=== PATIENT | male | born 1950 | race Caucasian/White ===

== ENCOUNTER 2019-03-20 12:51 | Inpatient (IN) | payer MEDICARE ==
[~2019-03-20] VITALS: Ht 170.2 cm; Wt 90.0 kg
[2019-03-20] MEDS ORDERED: NITROGLYCERIN 2% 1 GM OINT PKT TD STA (12:58)
[2019-03-20] MEDS ORDERED: NITROGLYCERIN (SL) 0.4 MG TAB SL PRN (13:00)
[2019-03-20] MEDS ORDERED: ONDANSETRON 4 MG INJ IV STA (13:03)
[2019-03-20] MEDS ORDERED: morphine 4 MG/ML VIAL IV STA (13:03)
[2019-03-20] MEDS ORDERED: GLIP1TAB6 PO (13:52)
[2019-03-20] MEDS ORDERED: TOPI50TA13 PO (13:53)
[2019-03-20] MEDS ORDERED: PIOG30TA71 PO (13:53)
[2019-03-20] MEDS ORDERED: LOSA100T15 PO (13:53)
[2019-03-20] MEDS ORDERED: PHEN37.53 PO (13:54)
[2019-03-20] MEDS ORDERED: FENO160T13 PO (13:55)
--- NOTE | 2019-03-20 14:18 | RADRPT ---
Vent Rate: 81 bpm RR Interval: 744 msec WI Interval: 197 msec QRS Duration: 89 msec QT Interval: 352 msec QTC Interval: 408 msec P-R-T [place]: 53 - 15 - 14 degrees Sinus rhythm...normal P axis, V-rate 50- 99 Probable left ventricular hypertrophy...multiple LVH criteria Electronically Signed By: [facility]
[2019-03-20] MEDS ORDERED: ACETAMINOPHEN 325 MG TAB PO PRN (17:00)
[2019-03-20] MEDS ORDERED: ONDANSETRON 4 MG INJ IV PRN ×2 (17:00→17:30)
[2019-03-20] MEDS ORDERED: NACL 0.9% 3 ML SYG IV SCH (17:30)
--- NOTE | 2019-03-20 17:39 | HP ---
Date/Time of Note Date/Time of Note DATE: 03/20/19 TIME: 17:20 Assessment/Plan VTE Prophylaxis SCD applied (from Nsg): Yes Pharmacological prophylaxis: NA/contraindicated Pharm contraindication: low risk/ambulating Lines/Catheters IV Catheter Type (from Nrsg): Saline Lock Assessment/Plan Assessment/Plan 68 yo man with IDDM, HTN, hypertriglyceridema, migraine headache presents with acute abdominal pain and vomiting. #Abdominal pain #Vomiting #Chills Differential: - Biliary colic: I believe this is most likely. Patient reports similar episodes in the past. Discussed benefits and risks of elective cholecystectomy, and patient would like to have it done "to get it out of the way". Dr Carlisle consulted. - Pancreatitis: Lipase very slightly elevated. No e/o pancreatic edema or fat stranding on CT. No recent alcohol. Right now my suspicion is very low. Will send lipid panel, if triglycerides in the 1000s then will try to get it under control. - Gastroenteritis: Also possible. The patient denies eating anything unusual for breakfast or the day prior. Will make patient NPO, start IV fluids. Despite his age and weight, patient reports good cardiovascular ability; can climb a flight of stairs without stopping. He is medically optimized for lap vs open cholecystectomy with no further medical or cardiovascular workup needed prior to OR. #IDDM - Hold home meds, start sliding scale insulin #Hypertriglyceridemia - Send fasting lipid panel in AM #Migraine - Cont topiramate #HTN - Cont home ARB GI: None DVT: SCDs Result Diagram: 03/20/19 1306 03/20/19 1306 HPI/ROS Admit Date/Time Admit Date/Time 20 Mar 2019 Hx of Present Illness Mr. Bashir is a pleasant, healthy 68 yo man who presents with acute abdominal pain and vomiting. He was in his usual state of health until about 9:30 this morning, 3 hours after he arrived at work. He was sitting at his desk when he developed sharp abdominal pain mid abdominal radiating to the RUQ/R flank, chills, and diaphoresis. He then went to the bathroom and had a normal nonbloody bowel movement. Then suddenly developed nausea and vomited once, nonbloody. The pain receded; but a few hours later it recurrent, sharp RUQ. Had two more episodes of vomiting, then came to the ED. The patient had a similar episode of sharp abdominal pain and nausea, no vomiting a week ago. He attributed it to gas. It self resolved. In the ED the patient vomited twice again. On arrival afebrile, vital signs stable. Got morphine with complete resolution of pain. Labs unremarkable except for elevated lipase 315. US abdomen shows gallstones without cholecystitis or biliary tree obstruction. CT abdomen is unremarkable. ROS He denies night sweats, weight loss, anorexia, headache, dizziness vision changes, dysphagia, sore throat, cough, dyspnea, chest pa in/pressure/palpitations, hematemesis, diarrhea, constipation, dysuria, hematuria, obstructive urinary symptoms, melena. PMH/Family/Social Past Medical History Migraine headache (Takes topiramate, and phentermine to offset the drowsiness) Hypertension Non-insulin dependent diabetes Hypertriglyceridemia Medications Current Medications Ondansetron HCl (Zofran Inj) 4 mg BRIDGE ORDER PRN IV NAUSEA/VOMITING; Start 03/20/19 at 17:00; Stop 03/21/19 at 16:59 Acetaminophen (Tylenol Tab) 650 mg ER BRIDGE PRN PO .MILD PAIN 1-3 OR TEMP; Start 03/20/19 at 17:00; Stop 03/21/19 at 16:59 Coded Allergies: No Known Allergy (Unverified , 03/20/19) Past Surgical History R trigger finger tendon release Tonsillectomy in childhood Social History Owns a [employer]. Alcohol Use: rarely Smoking Status: Former smoker (quit 7 years ago) Drug Use: none Exam/Review of Systems Vital Signs Vitals Vital Signs Date Temp Pulse Resp B/P (MAP) Pulse Ox O2 O2 Flow FiO2 Time Delivery Rate 03/20/19 79 19 150/86 99 Room Air 15:57 (107) 03/20/19 98.0 13:49 Exam Exam Gen: well appearing robust elderly man sitting up in [facility] smiling. Eyes: PERRL, no icterus HEENT: Moist mucous membranes, clear oropharynx Neck: No lymphadenopathy, no JVD Card: Regular rate and rhythm, no murmurs Pulm: Clear to auscultation bilaterally Abd: Soft, nontender throughout, nondistended. Negative garcia's sign. Hypoactive bowel sounds. Ext: No cyanosis/clubbing/edema Skin: warm, dry, well perfused. LILY QUEEN MD 17, 2019 17:33
[2019-03-20] MEDS ORDERED: GLUCAGON 1 MG INJ IM PRN (18:00)
[2019-03-20] MEDS ORDERED: GLUCOSE GEL 15 GRAM TUBE PO PRN ×2 (18:00)
[2019-03-20] MEDS ORDERED: INSULIN ASPART [NOVOLOG] 3 ML PEN SC SCH (18:00)
[2019-03-20] MEDS ORDERED: GLUCOSE GEL 15 GRAM TUBE BUCCAL PRN (18:00)
[2019-03-20] MEDS ORDERED: DEXTROSE 50% 50 ML SYRINGE IV PRN ×2 (18:00)
--- NOTE | 2019-03-20 18:21 | ERD ---
ER Documentation Chief Complaint Chief Complaint right upper quadrant for a few hours. nausea no vomiting. no distress. HPI Patient is a 68-year-old male with hypertension and diabetes who presents with abdominal pain. The patient was brought in by ambulance. The patient's pain started a few hours ago. The patient had a "raw feeling". The patient has pain in the right upper quadrant which radiates to the right flank. The patient's blood sugar was 210 by paramedics. Upon review of old medical records this is the patient's first visit to the emergency department. The patient says that his primary doctor is Dr. Flores. ROS All systems reviewed and are negative except as per history of present illness. Medications Home Meds Reported Medications Fenofibrate, Micronized* (Fenofibrate*) 160 Mg Tablet, 160 MG PO DAILY, TAB 03/20/19 Phentermine Hcl (Phentermine Hcl) 37.5 Mg Tablet, 37.5 MG PO DAILY, TAB 03/20/19 Pioglitazone Hcl* (Pioglitazone Hcl*) 30 Mg Tablet, 30 MG PO DAILY, TAB 03/20/19 Topiramate* (Topiramate*) 50 Mg Tablet, 100 MG PO QAM, TAB 03/20/19 Losartan Potassium* (Losartan Potassium*) 100 Mg Tablet, 100 MG PO DAILY, TAB 03/20/19 Glipizide/Metformin HCl (Glipizide-Metformin 5-500 mg) 1 Each Tablet, 1 EACH PO BID, TAB 03/20/19 Allergies Allergies: Coded Allergies: No Known Allergy (Unverified , 03/20/19) PMhx/Soc History of Surgery: Yes (R HAND) Hx Cardiac Disorders: Yes (HTN, CHOLESTEROL) Hx Psychiatric Problems: No Hx Miscellaneous Medical Probl: No Hx Alcohol Use: No Hx Substance Use: No Hx Tobacco Use: Yes Smoking Status: Former smoker (quit 7 years ago) FmHx Family History: diabetes Physical Exam Vitals Vital Signs Date Temp Pulse Resp B/P (MAP) Pulse Ox O2 O2 Flow FiO2 Time Delivery Rate 03/20/19 79 19 150/86 99 Room Air 15:57 (107) 03/20/19 98.0 80 20 128/88 98 13:49 (101) Physical Exam Const: Moderate distress Head: Atraumatic Eyes: Normal Conjunctiva ENT: Normal External Ears, Nose and Mouth. Neck: Full range of motion. No meningismus. Resp: Clear to auscultation bilaterally Cardio: Regular rate and rhythm, no murmurs Abd: Soft, right upper quadrant tenderness to palpation without rebound or guarding Skin: No petechiae or rashes Back: No midline or flank tenderness Ext: No cyanosis, or edema Neur: Awake and alert Psych: Normal Mood and Affect Result Diagram: 03/20/19 1306 03/20/19 1306 Results 24 hrs Laboratory Tests Test 03/20/19 13:06 White Blood Count 8.6 10^3/ul Red Blood Count 4.08 10^6/ul Hemoglobin 12.6 g/dl Hematocrit 39.7 % Mean Corpuscular Volume 97.3 fl Mean Corpuscular Hemoglobin 30.9 pg Mean Corpuscular Hemoglobin Concent 31.7 g/dl Red Cell Distribution Width 13.7 % Platelet Count 414 10^3/UL Mean Platelet Volume 10.0 fl Immature Granulocytes % 0.500 % Neutrophils % 75.6 % Lymphocytes % 12.3 % Monocytes % 8.4 % Eosinophils % 2.2 % Basophils % 1.0 % Nucleated Red Blood Cells % 0.0 /100WBC Immature Granulocytes # 0.040 10^3/ul Neutrophils # 6.5 10^3/ul Lymphocytes # 1.1 10^3/ul Monocytes # 0.7 10^3/ul Eosinophils # 0.2 10^3/ul Basophils # 0.1 10^3/ul Nucleated Red Blood Cells # 0.0 10^3/ul Sodium Level 140 mmol/L Potassium Level 4.2 mmol/L Chloride Level 108 mmol/L Carbon Dioxide Level 24 mmol/L Anion Gap 8 Blood Urea Nitrogen 33 mg/dl Creatinine 1.52 mg/dl Est Glomerular Filtrat Rate mL/min 46 mL/min Glucose Level 211 mg/dl Calcium Level 11.1 mg/dl Total Bilirubin 0.5 mg/dl Direct Bilirubin 0.00 mg/dl Indirect Bilirubin 0.5 mg/dl Aspartate Amino Transf (AST/SGOT) 39 IU/L Alanine Aminotransferase (ALT/SGPT) 44 IU/L Alkaline Phosphatase 69 IU/L Troponin I < 0.012 ng/ml Total Protein 7.4 g/dl Albumin 4.1 g/dl Lipase 315 U/L Current Medications Medications Dose Sig/Heather Start Time Status Last (Trade) Ordered Route PRN Stop Time Admin Dose Reason Admin 1 inch ONCE STAT 03/20/19 DC Nitroglycerin TD 12:58 03/20/19 13:04 (Nitroglyceri n 2% Oint) 1 tab Q5M UP TO 3 03/20/19 DC Nitroglycerin DOSES PRN 13:00 SL .CHEST 03/20/19 13:04 (Nitroglyceri PAIN n (Sl Tab) 0.4 Mg) Morphine 4 mg ONCE STAT 03/20/19 DC 03/20/19 Sulfate IV 13:03 13:30 (morphine) 03/20/19 13:04 Ondansetron 4 mg ONCE STAT 03/20/19 DC 03/20/19 HCl (Zofran IV 13:03 13:30 Inj) 03/20/19 13:05 Ondansetron 4 mg BRIDGE ORDER 03/20/19 HCl (Zofran PRN IV 17:00 Inj) NAUSEA/VOMITI 03/21/19 16:59 NG 650 mg ER BRIDGE 03/20/19 Acetaminophen PRN PO 17:00 (Tylenol .MILD PAIN 03/21/19 16:59 Tab) 1-3 OR TEMP Sodium 1,000 ml @ [id number] IV 03/20/19 Chloride 75 mls/hr 17:18 IV Flush 3 ml PER 03/20/19 (NS 3 ml) PROTOCOL IV 17:30 Ondansetron 4 mg Q6H PRN 03/20/19 HCl (Zofran IV 17:30 Inj) NAUSEA/VOMITI NG Morphine 2 mg Q4H PRN 03/20/19 Sulfate IV .SEVERE 17:30 (morphine) PAIN 7-10 Losartan 100 mg DAILY PO 03/21/19 Potassium 09:00 (Cozaar) Topiramate 100 mg QAM PO 03/21/19 (Topamax) 09:00 160 mg DAILY PO 03/21/19 UNV Miscellaneous 09:00 Information Diagnostic 1 ea 02 XX 03/21/19 Test (Pha) 02:00 (Accu-Chek) ONCE ONCE 03/20/19 DC Miscellaneous HYPOGLYCEMIA XX 17:30 PROTOCOL 03/20/19 17:44 Information w... (* Miscellaneous Pharmacy Order) Insulin NOVOLOG WITH MEALS 03/20/19 Aspart *MODERATE* BEDTIME SC 18:00 (Novolog ALGORITHM Insulin Pen) 1 ea NOTE XX 03/20/19 Miscellaneous 18:00 Information Glucose 15 gm Q15M PRN 03/20/19 (Glutose) PO DECREASED 18:00 GLUCOSE Glucose 22.5 gm Q15M PRN 03/20/19 (Glutose) PO DECREASED 18:00 GLUCOSE Dextrose 25 ml Q15M PRN 03/20/19 (D50w IV DECREASED 18:00 Syringe) GLUCOSE Dextrose 50 ml Q15M PRN 03/20/19 (D50w IV DECREASED 18:00 Syringe) GLUCOSE Glucagon 1 mg Q15M PRN 03/20/19 (Glucagen) IM DECREASED 18:00 GLUCOSE Glucose 15 gm Q15M PRN 03/20/19 (Glutose) BUCCAL 18:00 DECREASED GLUCOSE Procedures/MDM CT scan abdomen pelvis read by radiology. Ultrasound read by radiology shows distended gallbladder with gallstones. Patient is a 68-year-old male presents with acute biliary colic with persistent pain. He was still having pain despite morphine. The patient has biliary colic with a distended gallbladder and gallstones. At this point there is no signs of acute cholecystitis or choledocholithiasis. However I do feel the patient would benefit from gallbladder removal given his age and diabetes and persistent pain. I spoke with Dr. Carlisle the general surgeon on-call who will see the patient in consultation. I spoke with Dr. Smith for admission to a medical surgical bed. Departure Diagnosis: Primary Impression: Biliary colic Additional Impression: Abdominal pain Abdominal location: right upper quadrant Qualified Codes: R10.11 - Right upper quadrant pain Condition: VELMA Ocampo MD March 20, 2019 18:21
[2019-03-20] MEDS: SOD CHLORIDE 0.9% 1,000 ML IV SCH (20:13)
[2019-03-20 20:34] VITALS: BP 168/67; PULSE 84; RESP 18
[2019-03-20] MEDS: morphine 2 MG INJ IV PRN (21:22)
[2019-03-20 22:03] VITALS: Ht 170.2 cm; Wt 90.0 kg
[2019-03-21] VITALS (23 sets, daily range): BP systolic 106–132; BP diastolic 50–63; PULSE 87–110; RESP 16–28
[2019-03-21] MEDS: INSULIN ASPART [NOVOLOG] 3 ML PEN SC SCH ×6 (01:00→21:00)
[2019-03-21] MEDS: ACCU-CHEK XX SCH (02:00)
[2019-03-21] MEDS: SOD CHLORIDE 0.9% 1,000 ML IV SCH ×3 (07:20→15:22)
[2019-03-21] MEDS: TOPIRAMATE 100 MG TAB PO SCH (09:00)
[2019-03-21] MEDS: FENOFIBRATE 145 MG TAB PO SCH (09:00)
[2019-03-21] MEDS: LOSARTAN 50 MG TAB PO SCH (09:00)
--- NOTE | 2019-03-21 10:06 | CONS ---
Assessment/Plan Assessment/Plan Assessment/Plan (Daily) 68 yom with DM , presents with abdominal pain , RUQ , distended gallbladder , multiple gallstones . WBC normal , LFTs normal Pain intermittent , tenderness present . Because of diabetes , increase risk of gangrenous cholecystitis, offered options of discharge and elective surgery vs proceeding while patient her e in hospital risks benefits and alternatives discussed . Patient wishes to proceed , present , OR called Consultation Date/Type/Reason Admit Date/Time 20 Mar 2019 Date of Consultation: March 21, 2019 Type of Consult general surgery Reason for Consultation abdominal pain , right upper quadrant Requesting Provider: LILY QUEEN MD Date/Time of Note DATE: 03/21/19 TIME: 10:05 Hx of Present Illness pleasant 68 yom , presented to the ER with severe right upper quadrant pain , nausea . Patient had a similar episode before but abated on its own Noted on U/S in ER to have distended gallbladder with multiple gallstones No prior abdominal surgery . Takes Metformin for Diabetes ,. Also HTN , Obesity , Hypercholesterolemia Past Medical History Home Meds Reported Medications Fenofibrate, Micronized* (Fenofibrate*) 160 Mg Tablet, 160 MG PO DAILY, TAB 03/20/19 Phentermine Hcl (Phentermine Hcl) 37.5 Mg Tablet, 37.5 MG PO DAILY, TAB 03/20/19 Pioglitazone Hcl* (Pioglitazone Hcl*) 30 Mg Tablet, 30 MG PO DAILY, TAB 03/20/19 Topiramate* (Topiramate*) 50 Mg Tablet, 100 MG PO QAM, TAB 03/20/19 Losartan Potassium* (Losartan Potassium*) 100 Mg Tablet, 100 MG PO DAILY, TAB 03/20/19 Glipizide/Metformin HCl (Glipizide-Metformin 5-500 mg) 1 Each Tablet, 1 EACH PO BID, TAB 03/20/19 Medications Current Medications Ondansetron HCl (Zofran Inj) 4 mg BRIDGE ORDER PRN IV NAUSEA/VOMITING; Start 03/20/19 at 17:00; Stop 03/21/19 at 16:59 Acetaminophen (Tylenol Tab) 650 mg ER BRIDGE PRN PO .MILD PAIN 1-3 OR TEMP; Start 03/20/19 at 17:00; Stop 03/21/19 at 16:59 Sodium Chloride 1,000 ml @ 75 mls/hr [id number] IV Last administered on 03/21/19at 09:17; Admin Dose 75 MLS/HR; Start 03/20/19 at 17:18 IV Flush (NS 3 ml) 3 ml PER PROTOCOL IV ; Start 03/20/19 at 17:30 Ondansetron HCl (Zofran Inj) 4 mg Q6H PRN IV NAUSEA/VOMITING; Start 03/20/19 at 17:30 Morphine Sulfate (morphine) 2 mg Q4H PRN IV .SEVERE PAIN 7-10 Last administered on 03/20/19at 21:22; Admin Dose 2 MG; Start 03/20/19 at 17:30 Losartan Potassium (Cozaar) 100 mg DAILY PO ; Start 03/21/19 at 09:00 Topiramate (Topamax) 100 mg QAM PO ; Start 03/21/19 at 09:00 Fenofibrate (Tricor) 145 mg DAILY PO ; Start 03/21/19 at 09:00 Diagnostic Test (Pha) (Accu-Chek) 1 ea 02 XX ; Start 03/21/19 at 02:00 Miscellaneous Information 1 ea NOTE XX ; Start 03/20/19 at 18:00 Glucose (Glutose) 15 gm Q15M PRN PO DECREASED GLUCOSE; Start 03/20/19 at 18:00 Glucose (Glutose) 22.5 gm Q15M PRN PO DECREASED GLUCOSE; Start 03/20/19 at 18:00 Dextrose (D50w Syringe) 25 ml Q15M PRN IV DECREASED GLUCOSE; Start 03/20/19 at 18:00 Dextrose (D50w Syringe) 50 ml Q15M PRN IV DECREASED GLUCOSE; Start 03/20/19 at 18:00 Glucagon (Glucagen) 1 mg Q15M PRN IM DECREASED GLUCOSE; Start 03/20/19 at 18:00 Glucose (Glutose) 15 gm Q15M PRN BUCCAL DECREASED GLUCOSE; Start 03/20/19 at 18:00 Insulin Aspart (Novolog Insulin Pen) NOVOLOG *MODERATE* ALGORI... Q4 SC ; Start 03/21/19 at 01:00 Allergies: Coded Allergies: No Known Allergy (Unverified , 03/20/19) Social History Alcohol Use: rarely Smoking Status: Former smoker Drug Use: none Exam/Review of Systems Exam Vitals Vital Signs Date Temp Pulse Resp B/P (MAP) Pulse Ox O2 O2 Flow FiO2 Time Delivery Rate 5/18/19 98.5 105 18 113/61 95 Room Air 07:36 (78) Intake and Output 03/20/19 03/20/19 03/21/19 1515:00 23:00 07:00 IntakeIntake Total 825 ml BalanceBalance 825 ml Gastrointestinal: tender (right upper quadrant) Results Result Diagram: 03/21/19 0448 03/21/19 0448 Results 24hrs Laboratory Tests Test 03/20/19 13:06 03/20/19 21:36 03/20/19 22:05 03/21/19 01:16 White Blood Count 8.6 Red Blood Count 4.08 L Hemoglobin 12.6 L Hematocrit 39.7 L Mean Corpuscular 97.3 Volume Mean Corpuscular 30.9 Hemoglobin Mean Corpuscular 31.7 L Hemoglobin Concent Red Cell 13.7 Distribution Width Platelet Count 414 Mean Platelet Volume 10.0 Immature 0.500 H Granulocytes % Neutrophils % 75.6 Lymphocytes % 12.3 L Monocytes % 8.4 Eosinophils % 2.2 Basophils % 1.0 Nucleated Red Blood 0.0 Cells % Immature 0.040 H Granulocytes # Neutrophils # 6.5 Lymphocytes # 1.1 Monocytes # 0.7 Eosinophils # 0.2 Basophils # 0.1 Nucleated Red Blood 0.0 Cells # Sodium Level 140 Potassium Level 4.2 Chloride Level 108 Carbon Dioxide Level 24 Anion Gap 8 Blood Urea Nitrogen 33 H Creatinine 1.52 H Est Glomerular 46 L Filtrat Rate mL/min Glucose Level 211 Calcium Level 11.1 H Total Bilirubin 0.5 Direct Bilirubin 0.00 Indirect Bilirubin 0.5 Aspartate Amino 39 Transf (AST/SGOT) Alanine 44 Aminotransferase (AL T/SGPT) Alkaline Phosphatase 69 Troponin I < 0.012 < 0.012 Total Protein 7.4 Albumin 4.1 Lipase 315 H Bedside Glucose 117 123 Creatine Kinase 110 Creatine Kinase 1.7 Index Creatinine Kinase MB 1.88 (Mass) Test 03/21/19 04:48 03/21/19 05:31 03/21/19 09:16 White Blood Count 9.5 Red Blood Count 4.06 L Hemoglobin 12.4 L Hematocrit 39.9 L Mean Corpuscular 98.3 Volume Mean Corpuscular 30.5 Hemoglobin Mean Corpuscular 31.1 L Hemoglobin Concent Red Cell 13.9 Distribution Width Platelet Count 423 H Mean Platelet Volume 10.6 H Immature 0.500 H Granulocytes % Neutrophils % 68.5 Lymphocytes % 14.5 L Monocytes % 14.0 H Eosinophils % 1.6 Basophils % 0.9 Nucleated Red Blood 0.0 Cells % Immature 0.050 H Granulocytes # Neutrophils # 6.5 Lymphocytes # 1.4 Monocytes # 1.3 H Eosinophils # 0.2 Basophils # 0.1 Nucleated Red Blood 0.0 Cells # Sodium Level 143 Potassium Level 5.5 H Chloride Level 111 H Carbon Dioxide Level 28 Anion Gap 4 L Blood Urea Nitrogen 28 H Creatinine 1.38 H Est Glomerular 51 L Filtrat Rate mL/min Glucose Level 127 # Hemoglobin A1c 7.0 H Calcium Level 10.5 H Phosphorus Level 3.0 Magnesium Level 2.0 Total Bilirubin 0.8 Direct Bilirubin 0.00 Indirect Bilirubin 0.8 Aspartate Amino 32 Transf (AST/SGOT) Alanine 36 Aminotransferase (AL T/SGPT) Alkaline Phosphatase 51 Creatine Kinase 150 Creatine Kinase 1.4 Index Creatinine Kinase MB 2.12 (Mass) Troponin I 0.028 Total Protein 6.7 Albumin 3.6 Globulin 3.10 Albumin/Globulin 1.16 Ratio Triglycerides Level 86 Cholesterol Level 137 LDL Cholesterol, 87 Calculated HDL Cholesterol 33 Cholesterol/HDL 4.1 Ratio Bedside Glucose 112 96 Medications Medication Current Medications Ondansetron HCl (Zofran Inj) 4 mg BRIDGE ORDER PRN IV NAUSEA/VOMITING; Start 03/20/19 at 17:00; Stop 03/21/19 at 16:59 Acetaminophen (Tylenol Tab) 650 mg ER BRIDGE PRN PO .MILD PAIN 1-3 OR TEMP; Start 03/20/19 at 17:00; Stop 03/21/19 at 16:59 Sodium Chloride 1,000 ml @ 75 mls/hr [id number] IV Last administered on 03/21/19at 09:17; Admin Dose 75 MLS/HR; Start 03/20/19 at 17:18 IV Flush (NS 3 ml) 3 ml PER PROTOCOL IV ; Start 03/20/19 at 17:30 Ondansetron HCl (Zofran Inj) 4 mg Q6H PRN IV NAUSEA/VOMITING; Start 03/20/19 at 17:30 Morphine Sulfate (morphine) 2 mg Q4H PRN IV .SEVERE PAIN 7-10 Last administered on 03/20/19at 21:22; Admin Dose 2 MG; Start 03/20/19 at 17:30 Losartan Potassium (Cozaar) 100 mg DAILY PO ; Start 03/21/19 at 09:00 Topiramate (Topamax) 100 mg QAM PO ; Start 03/21/19 at 09:00 Fenofibrate (Tricor) 145 mg DAILY PO ; Start 03/21/19 at 09:00 Diagnostic Test (Pha) (Accu-Chek) 1 ea 02 XX ; Start 03/21/19 at 02:00 Miscellaneous Information 1 ea NOTE XX ; Start 03/20/19 at 18:00 Glucose (Glutose) 15 gm Q15M PRN PO DECREASED GLUCOSE; Start 03/20/19 at 18:00 Glucose (Glutose) 22.5 gm Q15M PRN PO DECREASED GLUCOSE; Start 03/20/19 at 18:00 Dextrose (D50w Syringe) 25 ml Q15M PRN IV DECREASED GLUCOSE; Start 03/20/19 at 18:00 Dextrose (D50w Syringe) 50 ml Q15M PRN IV DECREASED GLUCOSE; Start 03/20/19 at 18:00 Glucagon (Glucagen) 1 mg Q15M PRN IM DECREASED GLUCOSE; Start 03/20/19 at 18:00 Glucose (Glutose) 15 gm Q15M PRN BUCCAL DECREASED GLUCOSE; Start 03/20/19 at 18:00 Insulin Aspart (Novolog Insulin Pen) NOVOLOG *MODERATE* ALGORI... Q4 SC ; Start 03/21/19 at 01:00 SHERLY PAUL MD March 21, 2019 10:06
--- NOTE | 2019-03-21 11:26 | PREAC ---
Date/Time of Note Date/Time of Note DATE: 03/21/19 TIME: 11:23 Anesthesia Eval and Record Evaluation Time Pre-Procedure Interview DATE: 03/21/19 TIME: 11:23 Age 68 Sex male NPO: 8 hrs Preoperative diagnosis Cholelithiasis Planned procedure LAP Cholecystectomy Past Medical History Past Medical History: Includes Cardio: HTN, Dyslipidemia Endo: Diabetes GI: Morbid obesity Surgery & Anesthesia Issues No known issue Meds Anticoagulation: No Beta Leonardo within 24 hr: No Reason Beta Leonardo not given: Pt. not on B-Leonardo Reported Medications Fenofibrate, Micronized* (Fenofibrate*) 160 Mg Tablet, 160 MG PO DAILY, TAB 03/20/19 Phentermine Hcl (Phentermine Hcl) 37.5 Mg Tablet, 37.5 MG PO DAILY, TAB 03/20/19 Pioglitazone Hcl* (Pioglitazone Hcl*) 30 Mg Tablet, 30 MG PO DAILY, TAB 03/20/19 Topiramate* (Topiramate*) 50 Mg Tablet, 100 MG PO QAM, TAB 03/20/19 Losartan Potassium* (Losartan Potassium*) 100 Mg Tablet, 100 MG PO DAILY, TAB 03/20/19 Glipizide/Metformin HCl (Glipizide-Metformin 5-500 mg) 1 Each Tablet, 1 EACH PO BID, TAB 03/20/19 Current Medications Ondansetron HCl (Zofran Inj) 4 mg BRIDGE ORDER PRN IV NAUSEA/VOMITING; Start 03/20/19 at 17:00; Stop 03/21/19 at 16:59 Acetaminophen (Tylenol Tab) 650 mg ER BRIDGE PRN PO .MILD PAIN 1-3 OR TEMP; Start 03/20/19 at 17:00; Stop 03/21/19 at 16:59 Sodium Chloride 1,000 ml @ 75 mls/hr [id number] IV Last administered on 03/21/19at 09:17; Admin Dose 75 MLS/HR; Start 03/20/19 at 17:18 IV Flush (NS 3 ml) 3 ml PER PROTOCOL IV ; Start 03/20/19 at 17:30 Ondansetron HCl (Zofran Inj) 4 mg Q6H PRN IV NAUSEA/VOMITING; Start 03/20/19 at 17:30 Morphine Sulfate (morphine) 2 mg Q4H PRN IV .SEVERE PAIN 7-10 Last administered on 03/20/19at 21:22; Admin Dose 2 MG; Start 03/20/19 at 17:30 Losartan Potassium (Cozaar) 100 mg DAILY PO ; Start 03/21/19 at 09:00 Topiramate (Topamax) 100 mg QAM PO ; Start 03/21/19 at 09:00 Fenofibrate (Tricor) 145 mg DAILY PO ; Start 03/21/19 at 09:00 Diagnostic Test (Pha) (Accu-Chek) 1 ea 02 XX ; Start 03/21/19 at 02:00 Miscellaneous Information 1 ea NOTE XX ; Start 03/20/19 at 18:00 Glucose (Glutose) 15 gm Q15M PRN PO DECREASED GLUCOSE; Start 03/20/19 at 18:00 Glucose (Glutose) 22.5 gm Q15M PRN PO DECREASED GLUCOSE; Start 03/20/19 at 18:00 Dextrose (D50w Syringe) 25 ml Q15M PRN IV DECREASED GLUCOSE; Start 03/20/19 at 18:00 Dextrose (D50w Syringe) 50 ml Q15M PRN IV DECREASED GLUCOSE; Start 03/20/19 at 18:00 Glucagon (Glucagen) 1 mg Q15M PRN IM DECREASED GLUCOSE; Start 03/20/19 at 18:00 Glucose (Glutose) 15 gm Q15M PRN BUCCAL DECREASED GLUCOSE; Start 03/20/19 at 18:00 Insulin Aspart (Novolog Insulin Pen) NOVOLOG *MODERATE* ALGORI... Q4 SC ; Start 03/21/19 at 01:00 Meds reviewed: Yes Allergies Coded Allergies: No Known Allergy (Unverified , 03/20/19) Allergies Reviewed: Yes Labs/Studies Labs Reviewed: Reviewed by anesthesiologist Result Diagram: 03/21/19 0448 03/21/19 0448 Laboratory Tests 03/21/19 04:48 test: N/A Studies: ECG Pre-procedure Exam Last vitals Vital Signs Date Temp Pulse Resp B/P (MAP) Pulse Ox O2 O2 Flow FiO2 Time Delivery Rate 03/21/19 98.5 105 18 113/61 95 Room Air 07:36 (78) Airway: Adequate mouth opening, Adequate thyromental dist Mallampati: Mallampati II Teeth: Normal Lung: Normal Heart: Normal ASA Physical Status ASA physical status: 3 Emergency: E Planned Anesthetic General/MAC: ETT Planned Pain Management Single shot nerve block, Parenteral pain med Pre-operative Attestations Prior to commencing anesthesia and surgery, the patient was re-evaluated, there was verification of: *The patient's identity *The results of appropriate recent lab work and preoperative vital signs *The above evaluation not changing prior to induction *Anesthetic plan, risk benefits, alternative and complications discussed with patient/family; questions answered; patient/family understands, accepts and wishes to proceed. ANGELO OCASIO MD March 21, 2019 11:26
[2019-03-21] MEDS ORDERED: HYDROmorphONE 1 MG/5 ML IV SYRINGE IV PRN ×2 (11:30)
[2019-03-21] MEDS ORDERED: LABETALOL HCL 20MG INJ IV PRN (11:30)
[2019-03-21] MEDS ORDERED: METOCLOPRAMIDE 10 MG INJ IV PRN (11:30)
[2019-03-21] MEDS ORDERED: hydrALAzine 20 MG INJ IV PRN (11:30)
[2019-03-21] MEDS ORDERED: MEPERIDINE 25 MG INJ IV PRN (11:30)
[2019-03-21] MEDS ORDERED: DIPHENHYDRAMINE 50 MG INJ IV PRN (11:30)
[2019-03-21] MEDS ORDERED: ONDANSETRON 4 MG INJ IV PRN ×2 (11:30→13:30)
[2019-03-21] MEDS ORDERED: MIDAZOLAM 1 MG/ML 2 ML INJ ONE (11:42)
[2019-03-21] MEDS ORDERED: BUPIVACAINE 0.25%/EPI (SDV) 30 ML INJ ONE (12:17)
[2019-03-21] MEDS ORDERED: LIDOCAINE 1% (MPF) 30 ML INJ ONE (12:17)
[2019-03-21] MEDS ORDERED: ROCURONIUM 50 MG INJ ONE (12:52)
[2019-03-21] MEDS ORDERED: NEOSTIGMINE 3 MG/3 ML SYRINGE ONE (12:52)
[2019-03-21] MEDS ORDERED: LIDOCAINE 2% (SDV) 5 ML INJ ONE (12:52)
[2019-03-21] MEDS ORDERED: GLYCOPYRROLATE 0.4 MG INJ ONE (12:52)
[2019-03-21] MEDS ORDERED: ETOMIDATE 20 MG INJ ONE (12:52)
[2019-03-21] MEDS ORDERED: CEFAZOLIN 1 GM INJ ONE (12:53)
[2019-03-21] MEDS ORDERED: ONDANSETRON 4 MG INJ ONE (12:53)
[2019-03-21] MEDS ORDERED: ROPIVACAINE 0.5 % 30 ML VIAL ONE (12:54)
[2019-03-21] MEDS ORDERED: ROPIVACAINE 0.2% 20 ML VIAL ONE (13:12)
[2019-03-21] MEDS ORDERED: ACETAMINOPHEN 325 MG TAB PO PRN (13:30)
[2019-03-21] MEDS ORDERED: IBUPROFEN 600 MG TAB PO PRN (13:30)
[2019-03-21] MEDS ORDERED: OXYCODONE/ACETAMINOPHEN (5/325) TAB PO PRN (13:30)
[2019-03-21] MEDS ORDERED: HYDROmorphONE 0.5 MG/0.5 ML SYG IV PRN (13:30)
[2019-03-21] MEDS ORDERED: LACTATED RINGER'S 1,000 ML IV SCH (13:30)
--- NOTE | 2019-03-21 13:31 | OPR ---
Date/Time of Note Date/Time of Note DATE: 03/21/19 TIME: 13:25 Operative Report Free Text/Dictation Operative report Procedure Date: March 21, 2019 Preoperative Diagnosis Cholecystitis, cholelithiasis Postoperative Diagnosis Same Operation/Procedure Performed Laparoscopic cholecystectomy Surgeon Sherly Carlisle see signature line Receiving Worker None Anesthesia Type: general Anesthesiologist: ANGELO OCASIO MD Estimated Blood Loss: 0 - 10 ml's Transfusion none Specimen Gallbladder and content Grafts/Implants none Tubes/Drains None Complications none Pt Condition Post Procedure: stable Disposition: PACU Indications Patient presented to the emergency room with epigastric and right upper quadrant pain ultrasound showed distended gallbladder with multiple gallstones. Signs and symptoms consistent with acute cholecystitis and cholelithiasis. Surgical consultation was requested I saw the patient and explained diagnosis and treatment options which would be to be discharged patient is stable and have elective laparoscopic cholecystectomy however because of ongoing symptoms and tenderness feel it is warranted especially because the patient is diabetic to proceed with laparoscopy and laparoscopic cholecystectomy today. Details the procedure respect alternatives were discussed including possibility of postoperative pain postoperative fatty food intolerance with diarrhea which may become prolonged. Possibility of conversion to open procedure. Patient agreed to proceed [place] has been called. Procedure Description Patient brought to the operating placed supine position general she is administered with intubation patient prepped draped in sterile fashion orogastric inserted by anesthesia timeout was completed standard Veress needle in the left trocar was placed at Murphy's point insufflation delivered to maintain pneumoperitoneum at 15 mmHg throughout the procedure course of Marcaine was used with careful versus small stab incision made approximately 4 cm above the umbilicus and a 5 mm trocar was inserted direct visualization the peritoneum was identified and removed an epigastric 11 mm trocar and 2 right-sided 5 mm trochars were inserted next patient placed in slight reverse Trendelenburg and right position the gallbladder was quite distended and bilobed in shape. The fundus the gallbladder was grasped lifted up over the towards the right upper quadrant. A combination of suction irrigation hook cautery was used to score the triangle just below the junction of the cystic duct critical view was maintained the cystic duct was skeletonized first double clipped proximally 1 distally and then divided in similar fashion as the scar was identified clipped proximal and distal and then divided. There is a small accessory branch which was clipped and controlled. Small bleeders controlled liver bed was controlled with monopolar cautery trocar was used to score the peritoneum the gallbladder was taken off liver bed by the fundus the gallbladder was intrahepatic and so the posterior part of the gallbladder was entered but this was able to be dissected off the liver bed and hemostasis controlled with monopolar cautery the operative was irrigated and aspirated to clear a Endo Catch bag was inserted through the epigastric protocol position brought out after the fascia was stretched to accommodate delivery. The trochars and reinserted final inspection was initially good hemostasis a suture closure device was then used with 2 interrupted 0 Ethibond sutures to close the fascia incision the wound was irrigated and then closed with 3-0 Monocryl and all wounds were skin were closed with 4-0 Monocryl and Dermabond patient was explained the operative brought recovery in stable condition. A tap block was performed by anesthesia prior to bringing the patient to recovery room. SHERLY CARLISLE MD March 21, 2019 13:31
--- NOTE | 2019-03-21 13:34 | PAC ---
Date/Time of Note Date/Time of Note DATE: 03/21/19 TIME: 13:33 Post-Anesthesia Notes Post-Anesthesia Note Last documented vital signs Vital Signs Date Temp Pulse Resp B/P (MAP) Pulse Ox O2 O2 Flow FiO2 Time Delivery Rate 03/21/19 98.5 105 18 113/61 95 Room Air 07:36 (78) Activity: WNL Respiratory function: WNL Cardiovascular function: WNL Mental status: Baseline Pain reasonably controlled: Yes Hydration appropriate: Yes Nausea/Vomiting absent: Yes Comments BP:134/77, P:88, Spo2:100%, T:98,7 ANGELO OCASIO MD March 21, 2019 13:34
--- NOTE | 2019-03-21 13:49 | PN ---
Date/Time of Note Date/Time of Note DATE: 03/21/19 TIME: 13:48 Assessment/Plan VTE Prophylaxis Risk score (from Ns)>0 risk: 4 SCD applied (from Ns): Yes Pharmacological prophylaxis: NA/contraindicated Pharm contraindication: surgical contra Lines/Catheters IV Catheter Type (from [email or web address] Peripheral IV Assessment/Plan Hospital Course 1. Cholelithiasis with cholecystitis status post lap cholecystectomy 2. Diabetes Continue regimen 3. Migraines Continue topiramate 4. Hypertension Continue home meds DC planning: DC home tomorrow Result Diagram: 03/21/1944703/21/19447 Results 24hrs Laboratory Tests Test 03/20/19 21:36 03/20/19 22:05 03/21/19 01:16 03/21/19 04:48 Bedside Glucose 117 123 Creatine Kinase 110 150 Creatine Kinase 1.7 1.4 Index Creatinine Kinase MB 1.88 2.12 (Mass) Troponin I < 0.012 0.028 White Blood Count 9.5 Red Blood Count 4.06 L Hemoglobin 12.4 L Hematocrit 39.9 L Mean Corpuscular 98.3 Volume Mean Corpuscular 30.5 Hemoglobin Mean Corpuscular 31.1 L Hemoglobin Concent Red Cell 13.9 Distribution Width Platelet Count 423 H Mean Platelet Volume 10.6 H Immature 0.500 H Granulocytes % Neutrophils % 68.5 Lymphocytes % 14.5 L Monocytes % 14.0 H Eosinophils % 1.6 Basophils % 0.9 Nucleated Red Blood 0.0 Cells % Immature 0.050 H Granulocytes # Neutrophils # 6.5 Lymphocytes # 1.4 Monocytes # 1.3 H Eosinophils # 0.2 Basophils # 0.1 Nucleated Red Blood 0.0 Cells # Sodium Level 143 Potassium Level 5.5 H Chloride Level 111 H Carbon Dioxide Level 28 Anion Gap 4 L Blood Urea Nitrogen 28 H Creatinine 1.38 H Est Glomerular 51 L Filtrat Rate mL/min Glucose Level 127 # Hemoglobin A1c 7.0 H Calcium Level 10.5 H Phosphorus Level 3.0 Magnesium Level 2.0 Total Bilirubin 0.8 Direct Bilirubin 0.00 Indirect Bilirubin 0.8 Aspartate Amino 32 Transf (AST/SGOT) Alanine 36 Aminotransferase (AL T/SGPT) Alkaline Phosphatase 51 Total Protein 6.7 Albumin 3.6 Globulin 3.10 Albumin/Globulin 1.16 Ratio Triglycerides Level 86 Cholesterol Level 137 LDL Cholesterol, 87 Calculated HDL Cholesterol 33 Cholesterol/HDL 4.1 Ratio Test 03/21/19 05:31 03/21/19 09:16 03/21/19 10:29 Bedside Glucose 112 96 118 Subjective 24 Hr Interval Summary Constitutional: no complaints Exam/Review of Systems Exam Vitals Vital Signs Date Temp Pulse Resp B/P (MAP) Pulse Ox O2 O2 Flow FiO2 Time Delivery Rate 03/21/19 92 22 126/57 100 Mask 8.0 13:39 (80) 03/21/19 98.1 13:29 Intake and Output 03/20/19 03/20/19 03/21/19 1515:00 23:00 07:00 IntakeIntake Total 825 ml BalanceBalance 825 ml Constitutional: alert, oriented Respiratory: clear to auscultation Cardiovascular: regular rate and rhythm Gastrointestinal: soft; No distended Musculoskeletal: nl extremities to inspection Results Results 24hrs Laboratory Tests Test 03/20/19 21:36 03/20/19 22:05 03/21/19 01:16 03/21/19 04:48 Bedside Glucose 117 123 Creatine Kinase 110 150 Creatine Kinase 1.7 1.4 Index Creatinine Kinase MB 1.88 2.12 (Mass) Troponin I < 0.012 0.028 White Blood Count 9.5 Red Blood Count 4.06 L Hemoglobin 12.4 L Hematocrit 39.9 L Mean Corpuscular 98.3 Volume Mean Corpuscular 30.5 Hemoglobin Mean Corpuscular 31.1 L Hemoglobin Concent Red Cell 13.9 Distribution Width Platelet Count 423 H Mean Platelet Volume 10.6 H Immature 0.500 H Granulocytes % Neutrophils % 68.5 Lymphocytes % 14.5 L Monocytes % 14.0 H Eosinophils % 1.6 Basophils % 0.9 Nucleated Red Blood 0.0 Cells % Immature 0.050 H Granulocytes # Neutrophils # 6.5 Lymphocytes # 1.4 Monocytes # 1.3 H Eosinophils # 0.2 Basophils # 0.1 Nucleated Red Blood 0.0 Cells # Sodium Level 143 Potassium Level 5.5 H Chloride Level 111 H Carbon Dioxide Level 28 Anion Gap 4 L Blood Urea Nitrogen 28 H Creatinine 1.38 H Est Glomerular 51 L Filtrat Rate mL/min Glucose Level 127 # Hemoglobin A1c 7.0 H Calcium Level 10.5 H Phosphorus Level 3.0 Magnesium Level 2.0 Total Bilirubin 0.8 Direct Bilirubin 0.00 Indirect Bilirubin 0.8 Aspartate Amino 32 Transf (AST/SGOT) Alanine 36 Aminotransferase (AL T/SGPT) Alkaline Phosphatase 51 Total Protein 6.7 Albumin 3.6 Globulin 3.10 Albumin/Globulin 1.16 Ratio Triglycerides Level 86 Cholesterol Level 137 LDL Cholesterol, 87 Calculated HDL Cholesterol 33 Cholesterol/HDL 4.1 Ratio Test 03/21/19 05:31 03/21/19 09:16 03/21/19 10:29 Bedside Glucose 112 96 118 Medications Medication Current Medications IV Flush (NS 3 ml) 3 ml PER PROTOCOL IV ; Start 03/20/19 at 17:30 Ondansetron HCl (Zofran Inj) 4 mg Q6H PRN IV NAUSEA/VOMITING; Start 03/20/19 at 17:30 Morphine Sulfate (morphine) 2 mg Q4H PRN IV .SEVERE PAIN 7-10 Last administered on 03/20/19at 21:22; Admin Dose 2 MG; Start 03/20/19 at 17:30 Losartan Potassium (Cozaar) 100 mg DAILY PO ; Start 03/21/19 at 09:00 Topiramate (Topamax) 100 mg QAM PO ; Start 03/21/19 at 09:00 Fenofibrate (Tricor) 145 mg DAILY PO ; Start 03/21/19 at 09:00 Diagnostic Test (Pha) (Accu-Chek) 1 ea 02 XX ; Start 03/21/19 at 02:00 Miscellaneous Information 1 ea NOTE XX ; Start 03/20/19 at 18:00 Glucose (Glutose) 15 gm Q15M PRN PO DECREASED GLUCOSE; Start 03/20/19 at 18:00 Glucose (Glutose) 22.5 gm Q15M PRN PO DECREASED GLUCOSE; Start 03/20/19 at 18:00 Dextrose (D50w Syringe) 25 ml Q15M PRN IV DECREASED GLUCOSE; Start 03/20/19 at 18:00 Dextrose (D50w Syringe) 50 ml Q15M PRN IV DECREASED GLUCOSE; Start 03/20/19 at 18:00 Glucagon (Glucagen) 1 mg Q15M PRN IM DECREASED GLUCOSE; Start 03/20/19 at 18:00 Glucose (Glutose) 15 gm Q15M PRN BUCCAL DECREASED GLUCOSE; Start 03/20/19 at 18:00 Insulin Aspart (Novolog Insulin Pen) NOVOLOG *MODERATE* ALGORI... Q4 SC ; Start 03/21/19 at 01:00 Hydromorphone HCl (Dilaudid) 0.2 mg PACU PRN IV MILD PAIN 1-3; Start 03/21/19 at 11:30; Stop 03/21/19 at 15:30 Hydromorphone HCl (Dilaudid) 0.4 mg PACU PRN IV MOD PAIN 4-6; Start 03/21/19 at 11:30; Stop 03/21/19 at 15:30 Fentanyl (Sublimaze) 25 mcg PACU ORDER PRN IV MILD PAIN 1-3; Start 03/21/19 at 11:30; Stop 03/21/19 at 15:30 Ondansetron HCl (Zofran Inj) 4 mg PACU ORDER PRN IV NAUSEA/VOMITING; Start 03/21/19 at 11:30; Stop 03/21/19 at 15:30 Metoclopramide HCl (Reglan) 10 mg PACU ORDER PRN IV NAUSEA/VOMITING; Start 03/21/19 at 11:30; Stop 03/21/19 at 15:30 Labetalol HCl (Labetalol) 5 mg PACU ORDER PRN IV HIGH BLOOD PRESSURE; Start 03/21/19 at 11:30; Stop 03/21/19 at 15:30 Hydralazine HCl (Apresoline) 5 mg PACU ORDER PRN IV HIGH BLOOD PRESSURE; Start 03/21/19 at 11:30; Stop 03/21/19 at 15:30 Meperidine HCl (Demerol) 25 mg PACU ORDER PRN IV .RIGORS; Start 03/21/19 at 11:30; Stop 03/21/19 at 15:30 Diphenhydramine HCl (Benadryl) 25 mg PACU ORDER PRN IV .PRURITUS; Start 03/21/19 at 11:30; Stop 03/21/19 at 15:30 Ondansetron HCl (Zofran Inj) 4 mg Q6H PRN IV NAUSEA AND/OR VOMITING; Start 03/21/19 at 13:30 Hydromorphone HCl (Dilaudid) 0.5 mg Q4H PRN IV BREAKTHROUGH PAIN; Start 03/21/19 at 13:30 Acetaminophen (Tylenol Tab) 650 mg Q6H PRN PO MILD PAIN(1-3)OR ELEVATED TEMP; Start 03/21/19 at 13:30 Ibuprofen (Motrin) 600 mg Q6H PRN PO PAIN LEVEL 1-5; Start 03/21/19 at 13:30 Oxycodone/ Acetaminophen (Percocet (5/ 325)) 1 tab Q6H PRN PO PAIN LEVEL 6-10; Start 03/21/19 at 13:30 Lactated Ringer's 1,000 ml @ 100 mls/hr Q10H IV ; Start 03/21/19 at 13:30 Enoxaparin Sodium (Lovenox) 30 mg DAILY@07 SC ; Start 03/22/19 at 07:00 RORY DOVER March 21, 2019 13:49
[2019-03-21] MEDS: FENTAnyl 50 MCG/ML VIAL IV PRN ×2 (13:52→13:59)
[2019-03-21] MEDS: morphine 2 MG INJ IV PRN (15:16)
[2019-03-22 02:00] VITALS: BP 110/60; PULSE 105; RESP 18
[2019-03-22] MEDS: ACCU-CHEK XX SCH (02:00)
[2019-03-22] MEDS: SOD CHLORIDE 0.9% 1,000 ML IV SCH (03:59)
[2019-03-22] MEDS ORDERED: ENOXAPARIN 30 MG/0.3 ML SYG SC SCH (07:00)
[2019-03-22 07:54] VITALS: BP 132/67; PULSE 94; RESP 18
[2019-03-22] MEDS: FENOFIBRATE 145 MG TAB PO SCH (08:11)
[2019-03-22] MEDS: TOPIRAMATE 100 MG TAB PO SCH (08:12)
[2019-03-22] MEDS: LOSARTAN 50 MG TAB PO SCH (08:13)
[2019-03-22] MEDS: INSULIN ASPART [NOVOLOG] 3 ML PEN SC SCH ×2 (09:07→12:44)
[2019-03-22] MEDS ORDERED: MAGNESIUM OXIDE 400 MG TAB PO ONE (11:00)
--- NOTE | 2019-03-22 11:38 | PDOCDIS ---
Discharge Instructions CONDITION [id number] Patient Condition: [id number] Good HOME CARE INSTRUCTIONS: [id number] Diet Instructions: [id number] Regular ACTIVITY: [id number] Activity Restrictions: [id number] Avoid heavy lifting (X4 weeks) FOLLOW UP/APPOINTMENTS Follow-up Plan Follow-up with your PCP in 1 to 2 weeks, follow-up with Dr. Helder Carlisle of surgery in 1 to 2 weeks RORY DOVER March 22, 2019 11:38
[2019-03-22] MEDS ORDERED: OXYC-438 PO (11:39)
--- NOTE | 2019-03-22 11:44 | DS ---
Date/Time of Note Date/Time of Note DATE: 03/22/19 TIME: 11:42 Discharge Summary Admission/Discharge Info Admit Date/Time March 20, 2019 at 16:36 Discharge Date/Time March 22, 2019 Discharge Diagnosis 1. Cholelithiasis with cholecystitis status post lap cholecystectomy 2. Diabetes Continue regimen 3. Migraines Continue topiramate 4. Hypertension Continue home meds 5. Hyperkalemia-resolved 6. Tachycardia secondary to pain-resolved 7. Acute on likely chronic disease-Improved Outpatient monitoring Patient Condition: Good Hospital Course Patient is a 68-year-old male with history of hypertension, diabetes, migraines likely CKD who presents with biliary colic. Patient was noted to have cholelithiasis causing his biliary colic and was taken to the OR for a laparoscopic cholecystectomy. Patient did have tachycardia after surgery which was secondary to pain, tachycardia did resolve. Patient did have mild hyperkalemia which also resolved with fluids, patient had acute elevation of creatinine which improved. Patient was stable for DC, on the day of discharge patient's vitals, labs and physical exam are stable. Home Meds Active Scripts Oxycodone HCl/Acetaminophen (Oxycodone-Acetaminophen 5-325) 1 Each Tablet, 1 TAB PO Q6H PRN for PAIN LEVEL 6-10, #30 TAB Prov:RORY DOVER 03/22/19 Reported Medications Fenofibrate, Micronized* (Fenofibrate*) 160 Mg Tablet, 160 MG PO DAILY, TAB 03/20/19 Phentermine Hcl (Phentermine Hcl) 37.5 Mg Tablet, 37.5 MG PO DAILY, TAB 03/20/19 Pioglitazone Hcl* (Pioglitazone Hcl*) 30 Mg Tablet, 30 MG PO DAILY, TAB 03/20/19 Topiramate* (Topiramate*) 50 Mg Tablet, 100 MG PO QAM, TAB 03/20/19 Losartan Potassium* (Losartan Potassium*) 100 Mg Tablet, 100 MG PO DAILY, TAB 03/20/19 Glipizide/Metformin HCl (Glipizide-Metformin 5-500 mg) 1 Each Tablet, 1 EACH PO BID, TAB 03/20/19 Follow-up Plan Follow-up with your PCP in 1 to 2 weeks, follow-up with Dr. Helder Carlisle of surgery in 1 to 2 weeks Primary Care Provider Not On Staff Doctor Time spent on discharge: > 30 minutes RORY DOVER March 22, 2019 11:44
[2019-03-22 14:11] VITALS: BP 120/64; PULSE 57; RESP 18
== END 2019-03-22 16:04 | disposition home or self-care (01) | DRG 419 ==
LOC: E/R 12:51 → 2NE 16:36
PROVIDERS: ADMIT Internal Medicine; ATTEND Internal Medicine
PROC: 0FT44ZZ Resection of Gallbladder, Percutaneous Endoscopic Approach (ICD-10-PCS; principal; 2019-03-21 11:30)
DX: K80.10 Calculus of gallbladder with chronic cholecystitis without obstruction (principal); E11.9 Type 2 diabetes mellitus without complications; G43.909 Migraine, unspecified, not intractable, without status migrainosus; I10 Essential (primary) hypertension; E87.5 Hyperkalemia; R00.0 Tachycardia, unspecified
CPT/HCPCS: 36415; 71045; 74176; 76705; 80048; 80053; 80061; 80076; 82550; 82553; 82962; 83036; 83690; 83735; 84100; 84484; 85025; 88304; 93005; 96374; 96375; J0690; J1650; J1815; J2175; J2250; J2270; J2405; J2710; J2795; J3010; J7030; J7120